=== PATIENT | female | born 1985 | race Two or more races ===

== ENCOUNTER 2023-04-19 19:22 | Emergency (ER) | payer MEDICAID, OTHER ==
[~2023-04-19] VITALS: Ht 162.6 cm; Wt 131.8 kg
[2023-04-19] MEDS ORDERED: DexAMETHasone SOD PHOS 10MG/1ML VIAL INJ IM ONE (21:30)
[2023-04-19] MEDS ORDERED: cefTRIAXone SOD 1,000 MG VL IM ONE (21:30)
[2023-04-19] MEDS ORDERED: PRED20TA2 PO (21:39)
[2023-04-19] MEDS ORDERED: AZITTAB PO (21:39)
[2023-04-19] MEDS ORDERED: ALBUAER3 IN (21:39)
[2023-04-19] MEDS ORDERED: LIDV15LQ MT (21:39)
[2023-04-19 22:45] VITALS: BP 139/85
== END 2023-04-19 22:45 | disposition home or self-care (01) ==
LOC: ER 19:25
DX: J03.90 Acute tonsillitis, unspecified (principal); J40 Bronchitis, not specified as acute or chronic
CPT/HCPCS: 96372; 99284; J0696; J1100

== ENCOUNTER 2023-06-27 23:13 | Emergency (ER) | payer MEDICAID ==
[~2023-06-27] VITALS: Ht 160 cm; Wt 144.2 kg
[~2023-06-27 23:13] MED LIST: ALBUAER3 IN; AZITTAB PO; LIDV15LQ MT; PRED20TA2 PO
[2023-06-27] MEDS ORDERED: KETOROLAC TROMETH 60MG/2ML VIAL IM ONE (23:45)
[2023-06-27] MEDS ORDERED: DexAMETHasone SOD PHOS 10MG/1ML VIAL INJ IM ONE (23:45)
[2023-06-27] MEDS ORDERED: IBUP1TAB5 PO (23:53)
[2023-06-27] MEDS ORDERED: HYDR-4902 PO (23:53)
[2023-06-27 23:59] VITALS: BP 145/84; PULSE 73; RESP 16; TEMP 98.1; O2SAT 98
== END 2023-06-28 00:15 | disposition home or self-care (01) ==
LOC: ER 23:13
DX: G56.01 Carpal tunnel syndrome, right upper limb (principal); M25.531 Pain in right wrist; Z79.899 Other long term (current) drug therapy
CPT/HCPCS: 29125; 96372; 99284; J1100; J1885

== ENCOUNTER 2023-07-05 20:05 | Emergency (ER) | payer MEDICAID ==
[~2023-07-05] VITALS: Ht 160 cm; Wt 131.0 kg
[~2023-07-05 20:05] MED LIST changes: +HYDR-4902 PO; +IBUP1TAB5 PO
[2023-07-06] MEDS ORDERED: HYDROcodone-ACET 5/325MG TAB PO ONE (01:45)
[2023-07-06 02:23] VITALS: BP 132/78; PULSE 78; RESP 18; TEMP 98
[2023-07-06 02:28] VITALS: O2SAT 99
== END 2023-07-06 06:32 | disposition home or self-care (01) ==
LOC: ER 20:08
DX: G56.01 Carpal tunnel syndrome, right upper limb (principal); Z79.1 Long term (current) use of non-steroidal anti-inflammatories (NSAID); Z79.2 Long term (current) use of antibiotics; Z79.899 Other long term (current) drug therapy
CPT/HCPCS: 29125; 73110; 93971

== ENCOUNTER 2025-03-29 23:44 | Emergency (ER) | payer MEDICAID ==
[~2025-03-29] VITALS: Ht 160 cm; Wt 142.1 kg
[~2025-03-29 23:44] MED LIST changes: +LIDO2SOL MT; -LIDV15LQ MT
[2025-03-30 00:45] VITALS: BP 149/93; PULSE 68; RESP 16; TEMP 97.1; O2SAT 98
[2025-03-30] MEDS: KETOROLAC TROMETH 60MG/2ML VIAL IM ONE (01:05)
--- NOTE | 2025-03-30 01:13 | DVH ---
EXAM: XY R KNEE 3V XRAY HISTORY: right knee pain COMPARISON: None TECHNIQUE: 3 views of the right knee were performed. FINDINGS: No acute fracture is identified about the right knee. No significant joint space narrowing. No evid ence of significant joint effusion. IMPRESSION: Unremarkable radiographs of the right knee.
--- NOTE | 2025-03-30 01:16 | ED.PDOC ---
Musculoskeletal HPI Comments 39-year-old female presents to ER with complaints of right knee pain x1 month. Patient reports he has been experiencing right knee pain x1 month that got worse x1 day prompting her to come to ER for further evaluation. 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 She rates her current pain a 10/10 to right knee without radiation. Reports that she has been taking ibuprofen and naproxen for her pain with some relief. Patient presents to ER ambulatory on arrival, with steady gait, in no distress. Denies fever, shortness of breath, calf pain, numbness/tingling or any further symptoms/complaints Chief Complaint: Lower Extremity Time Seen by MD: 00:01 Primary Care Provider: NIDIA Reviewed Notes: Nurses Notes, Medications, Allergies Allergies: Coded Allergies: NO KNOWN ALLERGIES (Unverified , 04/19/23) Home Meds Active Scripts Hydrocodone-Acetaminophen (Hydrocodone Bitartrate/AC 5-325 mg) 1 Tab Tab, 1 TAB PO Q6HR, #10 TAB as needed for severe pain Prov:SIVLESTRE RODRÍGUEZ FIELD CONSULTANT 06/27/23 Ibuprofen Micronized (Ibuprofen) 600 Mg Tab, 1 TAB PO Q8HR, #20 TAB as needed for mild to moderate pain Prov:SILVESTRE RODRÍGUEZ FIELD CONSULTANT 06/27/23 Lidocaine HCl (Mouth-Throat) (Lidocaine Viscous) 2 % Keshia, 5 ML MT Q4HR, #100 ML as needed for sorethroat Prov:SILVESTRE RODRÍGUEZ FIELD CONSULTANT 04/19/23 Prednisone (Prednisone) 20 Mg Tab, 1 TAB PO DAILY for 5 Days, #5 TAB start tomorrow with food Prov:SILVESTRE RODRÍGUEZ FIELD CONSULTANT 04/19/23 Albuterol Sulfate (VENTOLIN MDI) 90 Mcg Ih, 1 PUFF IN Q4HR, #1 INH As needed for cough congestion shortness of breath Prov:SILVESTRE RODRÍGUEZ FIELD CONSULTANT 04/19/23 Azithromycin (Zithromax Z-Chinedu) 250 Mg Tab, 1 TAB PO DAILY for 5 Days, #6 TAB 2 tabs today then 1 tab start tomorrow for 4 days Prov:SILVESTRE RODRÍGUEZ FIELD CONSULTANT 04/19/23 Information Source: Patient Mode of Arrival: Ambulatory Past Medical History PAST MEDICAL HISTORY: Denies Surgical History: Denies all surgeries COMMAND AND CONTROL History: No Pertinent COMMAND AND CONTROL History Family History Family History: Unknown Social History Smoker: Non-Smoker Alcohol: Denies ETOH Use Drugs: Denies Drug Use Lives In: Home Constitutional: denies: chills, diaphoresis, fatigue, fever, malaise, sweats, weakness, others EENTM: denies: blurred vision, double vision, ear bleeding, ear discharge, ear drainage, ear pain, ear ringing, eye pain, eye redness, hearing loss, mouth pain, mouth swelling, nasal discharge, nose bleeding, nose congestion, nose pain, photophobia, tearing, throat pain, throat swelling, voice changes, others Respiratory: denies: cough, hemoptysis, orthopnea, SOB at rest, shortness of breath, SOB with excertion, stridor, wheezing, others Cardiovascular: denies: chest pain, dizzy spells, diaphoresis, Dyspnea on exertion, edema, irregular heart beat, left arm pain, lightheadedness, palpitations, PND, syncope, others Gastrointestinal: denies: abdomen distended, abdominal pain, blood streaked bowels, constipated, diarrhea, dysphagia, difficulty swallowing, hematemesis, melena, nausea, poor appetite, poor fluid intake, rectal bleeding, rectal pain, vomiting, others Genitourinary: denies: abnormal vagina bleeding, burning, dyspareunia, dysuria, flank pain, frequency, hematuria, incontinence, pain, , vagina discharge, urgency, others Neurological: denies: dizziness, fainting, headache, left sided numbness, left sided weakness, numbness, paresthesia, pre-existing deficit, right sided numbness, right sided weakness, seizure, speech problems, tingling, tremors, weakness, others Musculoskeletal: reports: others (As stated in HPI) Integumetry: denies: bruises, change in color, change in hair/nails, dryness, laceration, lesions, lumps, rash, wounds, others Allergic/Immunocompromised: denies: Difficulty Healing, Frequent Infections, Hives, Itching, others Hematologic/Lymphatic: denies: anemia, blood clots, easy bleeding, easy bruising, swollen glands, others Endocrine: denies: excessive hunger, excessive sweating, excessive thirst, excessive urination, flushing, intolerance to cold, intolerance to heat, unexplained weight gain, unexplained weight loss, others Psychiatric: denies: anxiety, bipolar disorder, depression, hopeless, panic disorder, schizophrenia, sleepless, suicidal, others Physical Exam General Appearance: No Apparent Distress, Obese HEENT: PERRL/EOMI Neck: Full Range of Motion, Non-Tender, Normal Respiratory: Chest Non-Tender, Lungs Clear, No Accessory Muscle Use, No Re spiratory Distress, Normal Breath Sounds Cardiovascular: No Murmur, No Gallop, Regular Rate/Rhythm Breast Exam: Deferred Gastrointestinal: NOT DONE Genitalia: Deferred Pelvic: Deferred Rectal: Deferred Extremities: No calf tenderness, Normal capillary refill, Normal range of motion Musculoskeletal : Extremity Location: Knee (TTP/mild swelling noted to right anterior knee. No further skin changes/deformity noted. Positive anterior drawer test right knee. Negative Donna's test right knee. Pulses intact. Steady gait appreciated) Neurologic: Alert, No Motor Deficits, Normal Affect, Normal Mood, No Sensory Deficits Cerebellar Function: Normal Reflexes: Normal Skin: Dry, Normal Color, Warm Peripheral Pulses: 2+ femoral (R), 2+ femoral (L), 2+ dorsalis pedis (R), 2+ dorsalis pedis (L), 2+ Radial (R), 2+ Radial (L), 2+ Brachial (R), 2+ Brachial (L) Lymphatic: No Adenopathy Was a procedure done? Was a procedure done?: No Sedation Sedation?: No Differential Diagnosis EXT Differential Diagnosis: Deep Vein Thrombosis, Fracture, Dislocation, Neurovascular injury X-Ray, Labs, Meds, VS Vital Signs Date Time Temp Pulse Resp B/P (MAP) Pulse Ox O2 Delivery O2 Flow Rate FiO2 03/30/25 00:45 97.1 68 16 149/93 (111) 98 97.1 03/30/25 00:45 68 16 98 Room Air 03/30/25 00:20 97.1 68 16 149/93 (111) 98 97.1 Current Medications Medications (Trade) Dose Ordered Sig/Ruben Route Start Time Stop Time Status Last Admin Ketorolac Tromethamine (Toradol Injection) 60 mg ONCE ONCE IM 03/30/25 01:00 03/30/25 01:01 DC 03/30/25 01:05 PATIENT: DENVRE MARQUEZCCT: [id number]: [id number] : 1985 LOC: ER ROOM / BED: / AGE / SEX: 39 / F ADM STATUS: REG ER SERVICE [id number] ORDERING PHYSICIAN: RALEIGH WEINER PROCEDURE(s): RKN3 - R KNEE 3V XRAY REASON: right knee pain ORDER NUMBER(s): [id number], ACCESSION NUMBER(s): [id number] EXAM: XY R KNEE 3V XRAY HISTORY: right knee pain COMPARISON: None TECHNIQUE: 3 views of the right knee were performed. FINDINGS: No acute fracture is identified about the right knee. No significant joint space narrowing. No evidence of significant joint effusion. IMPRESSION: Unremarkable radiographs of the right knee. ATED BY: MANOLO SANTANA DO DICTATED DATE/TIME: 03/30/25109 SIGNED BY: MANOLO SANTANA DO SIGNED DATE/TIME: 03/30/25109 CC: Toradol 60 mg IM ordered Right knee x-ray reviewed Right knee immobilizer applied Advised on rest/no strenuous activity, elevation and alternate ice on/off as needed for pain/swelling Advised to follow up with PCP and orthopedics in 1-2 days Patient verbalized understanding and agreeable with current plan of care Advised to return to ER immediately if symptoms worsen Images Reviewed?: Images reviewed and evaluated by me Time of 1ST Reevaluation: 00:54 Reevaluation 1ST: N/A Patient Education/Counseling: Diagnosis, Treatment, Prognosis, Need For Follow Up Family Education/Counseling: No Family Present Departure 1 Departure Time of Disposition: 01:12 Impression: Primary Impression: Right knee sprain Qualified Codes: S83.91XA - Sprain of unspecified site of right knee, initial encounter Disposition: HOME / SELF CARE / HOMELESS Condition: Stable e-Prescriptions Methylprednisolone (Medrol Dosepak) 4 Mg Chinedu 4 MG PO UD, #21 TAB 0 Refills UAD Prov: RALEIGH WEINER 03/30/25 Ibuprofen (Ibuprofen) 800 Mg Tab 1 TAB PO TID PRN, #30 TAB 0 Refills Prov: RALEIGH WEINER 03/30/25 Discharged With: Friend Critical Care Note Critical Care Time?: No Stability Stability form required: No Heart Score Heart Score: Heart Score Response (Comments) Value History N/A 0 EKG N/A 0 Age N/A 0 Risk Factors N/A 0 Troponin N/A 0 Total 0 RALEIGH WEINER Mar 30, 2025 01:15
[2025-03-30] MEDS ORDERED: IBUP-1456 PO (01:18)
[2025-03-30] MEDS ORDERED: METH4PAK PO (01:18)
== END 2025-03-30 01:55 | disposition home or self-care (01) ==
LOC: ER 23:44
DX: S83.91XA Sprain of unspecified site of right knee, initial encounter (principal); Z79.52 Long term (current) use of systemic steroids; Z79.899 Other long term (current) drug therapy; X50.1XXA Overexertion from prolonged static or awkward postures, initial encounter; Y93.89 Activity, other specified; Y92.89 Other specified places as the place of occurrence of the external cause; Y99.8 Other external cause status
CPT/HCPCS: 29505; 73562; 96372; 99283; J1885

== ENCOUNTER 2025-08-13 14:19 | Emergency (ER) | payer MEDICAID ==
[~2025-08-13] VITALS: Ht 160 cm; Wt 140.4 kg
[~2025-08-13 14:19] MED LIST changes: +IBUP-1456 PO; +METH4PAK PO
--- NOTE | 2025-08-13 16:31 | ED.PDOC ---
Musculoskeletal HPI Comments HPI: Poor Historian. 39-year-old female presents to emergency department for pain control. Patient said that she injured her right knee few months ago and had an MRI that shows meniscus tear. She has been seen by her PCP and by pain management. Pain management prescribed her tramadol and she still has some tramadol left to use. She said the pain is not well controlled. She points to her right anterior knee in a focal area. Patient has not been able to take time off work and still stands and walks on her joint. Patient has an appointment with the orthopedic doctor on August 21. Patient has been seen by pain management two weeks ago. Denies any new fall or trauma. Patient states that her pain is worse at the end of the range of motion of full extension or full flexion but when the knees at degree angle and is not bearing weight feels better. Patient is neurovascularly intact in the affected extremity. Past Medical History: Denies Past Surgical History: REVIEW OF SYSTEMS: CONSTITUTIONAL: Denies acute: fever, diaphoresis, chills, generalized weakness. HEAD: Denies acute: headache, photophobia Eyes: Denies acute: Double vision, vision loss, eye pain, eye discharge. EARS: Denies acute: tinnitus, hearing loss, ear discharge, ear pain, THROAT: Denies acute: sore throat, swelling, difficulty swallowing , pain with swallowing, change in voice. NECK: Denies acute: neck pain, neck swelling, stiff neck. HEART: Denies acute : chest pain, palpitations, LUNGS: Denies acute: SOB, wheezing, cough, hemoptysis ABDOMEN: Denies acute: abdominal pain, Nausea, Vomiting, diarrhea, melena , hematemesis, hematochezia SKIN: Denies acute: rash, redness, lesions, itchiness. EXTREMITIES: Denies acute: calf pain, numbness, tingling, weakness, denies pain in extremity. Denies acute: Low back pain. Neuro: Denies acute: focal neurological deficit, motor or sensory focal neurological deficit, tremors, seizure like activity, confusion, dizziness, change in mental status, loss of bowel or bladder function, cauda equina like symptoms. : Denies acute: dysuria, hematuria, flank pain, increase in urinary frequency. PSYCH: Denies acute: hallucination, suicidal ideation, homicidal ideation. FEMALE: Denies acute: abnormal vaginal bleeding, foul odor, unusual discharge. PHYSICAL EXAM: General: ---mild----acute distress, awake and alert. Head: normocephalic, atraumatic. Neck: supple, trachea is midline, no swelling. Throat: Normal phonation. Eyes:, no erythema, no purulent discharge, no proptosis, no icterus. Heart: regular rate, regular rhythm, no significant murmur appreciated. Lungs: no apparent respiratory distress, Able to speak in full sentences. No wheezing, no rhonchi, no crackles. No stridors Clear to auscultation bilaterally. Abdomen: non tender to palpation, non distended, soft, no guarding, no rebound, + bowel sounds. Obese Neuro: Awake, Alert, oriented to name, self, situation, follows commands GCS=15. Speech is normal. Skin: no petechia, no purpura, no cyanosis, non-pale, not jaundice. Lower extremities: --no - Pitting edema no deformity, no focal swelling, no calf TTP. Makes eye contact. moves all four extremities. Face: no apparent facial droop. Ambulating in the ED independently. Pedal pulses are palpable. ED COURSE: DISCLAIMER: This medical document was created using an electronic medical record system with voice recognition software and computerized dictation system. Although this document has been carefully reviewed, there might still be some phonetic and typographical errors. Occasional wrong-word or "sound-alike" substitutions may have occurred due to the inherent limitations of voice recognition software. These areas are purely typographical due to imperfections of the software programs and do not reflect any compromise in the patient's medical care. Please read the chart carefully and recognize, using context, where these substitutions have occurred. Chief Complaint: Lower Extremity Time Seen by MD: 15:17 Primary Care Provider: NIDIA Reviewed Notes: Allergies Allergies: Coded Allergies: NO KNOWN ALLERGIES (Unverified , 04/19/23) Home Meds Active Scripts Methylprednisolone (Medrol Dosepak) 4 Mg Chinedu, 4 MG PO UD, #21 TAB 0 Refills UAD Prov:RALEIGH WEINER 03/30/25 Ibuprofen (Ibuprofen) 800 Mg Tab, 1 TAB PO TID PRN, #30 TAB 0 Refills Prov:RALEIGH WEINER 03/30/25 Hydrocodone-Acetaminophen (Hydrocodone Bitartrate/AC 5-325 mg) 1 Tab Tab, 1 TAB PO Q6HR, #10 TAB as needed for severe pain Prov:SILVESTRE RODRÍGUEZ Megan SENSORY SCIENTIST 06/27/23 Ibuprofen Micronized (Ibuprofen) 600 Mg Tab, 1 TAB PO Q8HR, #20 TAB as needed for mild to moderate pain Prov:MARCOSPRITIKaleb Guzman SENSORY SCIENTIST 06/27/23 Lidocaine HCl (Mouth-Throat) (Lidocaine Viscous) 2 % Keshia, 5 ML MT Q4HR, #100 ML as needed for sorethroat Prov:MARCOSPRITIKaleb Guzman SENSORY SCIENTIST 04/19/23 Prednisone (Prednisone) 20 Mg Tab, 1 TAB PO DAILY for 5 Days, #5 TAB start tomorrow with food Prov:MARCOSPRITIKaleb Guzman SENSORY SCIENTIST 04/19/23 Albuterol Sulfate (VENTOLIN MDI) 90 Mcg Ih, 1 PUFF IN Q4HR, #1 INH As needed for cough congestion shortness of breath Prov:MARCOSPRITIKaleb Guzman SENSORY SCIENTIST 04/19/23 Azithromycin (Zithromax Z-Chinedu) 250 Mg Tab, 1 TAB PO DAILY for 5 Days, #6 TAB 2 tabs today then 1 tab start tomorrow for 4 days Prov:SILVESTRE RODRÍGUEZ Megan SENSORY SCIENTIST 04/19/23 Information Source: Patient Mode of Arrival: Ambulatory Past Medical History PAST MEDICAL HISTORY: Denies Surgical History: Denies all surgeries MANAGER PAID History: No Pertinent MANAGER PAID History Family History Family History: Unknown Social History Smoker: Non-Smoker Alcohol: Denies ETOH Use Drugs: Denies Drug Use Lives In: Home X-Ray, Labs, Meds, VS Vital Signs Date Time Temp Pulse Resp B/P (MAP) Pulse Ox O2 Delivery O2 Flow Rate FiO2 08/13/25 14:21 97.8 73 15 135/82 96 97.8 Departure 1 Departure Time of Disposition: 16:30 Impression: Primary Impression: Right knee pain Additional Impression: Encounter for pain management Disposition: HOME / SELF CARE / HOMELESS Condition: Stable Additional Instructions: Additional instructions: Please read all instructions provided in this packet carefully. You MUST follow-up with your primary care/family doctor in 1 to 2 days. If you are unable to see your primary care/family doctor, please return to our emergency room for re-assessment and re-evaluation in 1 to 2 days. Return to the emergency room here in our facility or to the nearest ER [facility] if your symptoms change or worsen. CONSULTATIONS: you MUST Follow-up for consultation as soon as possible with: --orthopedic doctor as instructed as arranged. You MUST call the consultants office yourself to make an appointment. You may need to arrange that through your insurance and/or your primary/family doctor. If you are unable to see the pension consultant in 1 to 2 days, you must return to our emergency room (or any other ER of your choice) for re-assessment and re- evaluation. Adequate fluid hydration. Nonweightbearing. Rest. Leg elevation. Sedation precautions with medications. Although you have been discharged from the Emergency Department, this does not mean that you have a "clean bill of health". No definitive diagnosis for your symptoms has been made today. It is possible that you are in the process of developing a serious illness. This is why you must return to the ED without fail if any new or worsening symptoms develop. Discharged With: Self [place] SARAVIA DO Aug 13, 2025 16:31
[2025-08-13 17:30] VITALS: BP 130/75; PULSE 67; RESP 16; TEMP 98; O2SAT 100
[2025-08-13] MEDS: KETOROLAC TROMETH 60MG/2ML VIAL IM ONE (17:33)
[2025-08-13] MEDS: HYDROcodone-ACET 5/325MG TAB PO ONE (17:33)
== END 2025-08-13 18:02 | disposition home or self-care (01) ==
LOC: ER 14:19
DX: M25.561 Pain in right knee (principal); Z79.52 Long term (current) use of systemic steroids
CPT/HCPCS: 96372; 99284; J1100; J1885

== ENCOUNTER 2025-10-15 12:01 | Emergency (ER) | payer MEDICAID ==
[~2025-10-15] VITALS: Ht 160 cm; Wt 136.6 kg
[2025-10-15 12:11] VITALS: BP 127/91; PULSE 81; RESP 16; TEMP 98; O2SAT 99
--- NOTE | 2025-10-15 13:40 | ED.PDOC ---
SOB-HPI HPI Comments This is a 39 year old female presenting to the ED with chief complaint of flu- like illness. Patient reports that she has been experiencing a cough with associated chest congestion and SOB since . Patient relays that her SOB is only noted with exertion. Patient denies any fever, chills, headache, hemoptysis, or dizziness. Chief Complaint: Flu like Time Seen by MD: 13:37 Primary Care Provider: NIDIA Reviewed notes: Nurses Notes, Medications, Allergies Information Source: Patient Mode of Arrival: Ambulatory Severity: Moderate Timing: Days Duration: Since onset Context: At Rest PE Risk Factors: None History of: None Prehospital treatment: None Modifying Factors: Nothing Associated Signs and Symptoms: Cough, Chest Pain Quality: Aching If cough with SOB: Non-Productive Past Medical History PAST MEDICAL HISTORY: Denies Surgical History: Denies all surgeries SWIFT TENDER History: No Pertinent SWIFT TENDER History Family History Family History: Reviewed,noncontributory to illness Social History Smoker: Non-Smoker Alcohol: Denies ETOH Use Drugs: Denies Drug Use Lives In: Home Constitutional: denies: chills, diaphoresis, fatigue, fever, malaise, sweats, weakness, others EENTM: denies: blurred vision, double vision, ear bleeding, ear discharge, ear drainage, ear pain, ear ringing, eye pain, eye redness, hearing loss, mouth pain, mouth swelling, nasal discharge, nose bleeding, nose congestion, nose pain, photophobia, tearing, throat pain, throat swelling, voice changes, others Respiratory: reports: cough, shortness of breath; denies: hemoptysis, orthopnea, SOB at rest, SOB with excertion, stridor, wheezing, others Cardiovascular: reports: chest pain; denies: dizzy spells, diaphoresis, Dyspnea on exertion, edema, irregular heart beat, left arm pain, lightheadedness, palpitations, PND, syncope, others Gastrointestinal: denies: abdomen distended, abdominal pain, blood streaked bowels, constipated, diarrhea, dysphagia, difficulty swallowing, hematemesis, melena, nausea, poor appetite, poor fluid intake, rectal bleeding, rectal pain, vomiting, others Genitourinary: denies: abnormal vagina bleeding, burning, dyspareunia, dysuria, flank pain, frequency, hematuria, incontinence, pain, , vagina discharge, urgency, others Neurological: denies: dizziness, fainting, headache, left sided numbness, left sided weakness, numbness, paresthesia, pre-existing deficit, right sided numbness, right sided weakness, seizure, speech problems, tingling, tremors, weakness, others Musculoskeletal: denies: back pain, gout, joint pain, joint swelling, muscle pain, muscle stiffness, neck pain, others Integumetry: denies: bruises, change in color, change in hair/nails, dryness, laceration, lesions, lumps, rash, wounds, others Allergic/Immunocompromised: denies: Difficulty Healing, Frequent Infections, Hives, Itching, others Hematologic/Lymphatic: denies: anemia, blood clots, easy bleeding, easy bruising, swollen glands, others Endocrine: denies: excessive hunger, excessive sweating, excessive thirst, excessive urination, flushing, intolerance to cold, intolerance to heat, unexplained weight gain, unexplained weight loss, others Psychiatric: denies: anxiety, bipolar disorder, depression, hopeless, panic disorder, schizophrenia, sleepless, suicidal, others All Other Systems: Reviewed and Negative Physical Exam General Appearance: Moderate Distress, Normal HEENT: Normal ENT Inspection, Pharynx Normal, TMs Normal Neck: Full Range of Motion, Non-Tender, Normal, Normal Inspection Respiratory: Chest Non-Tender, Lungs Clear, No Accessory Muscle Use, No Respiratory Distress, Normal Breath Sounds Cardiovascular: No Edema, No JVD, No Murmur, No Gallop, Normal Peripheral Pulses, Regular Rate/Rhythm Breast Exam: Deferred Gastrointestinal: No Organomegaly, Non Tender, No Pulsatile Mass, Normal Bowel Sounds, Soft Genitalia: Deferred Pelvic: Deferred Rectal: Deferred Extremities: No calf tenderness, Normal capillary refill, Normal inspection, Normal range of motion, Non-tender, No pedal edema Musculoskeletal : Apperance: Normal Neurologic: Alert, contracting manager II-XII nml as Tested, No Motor Deficits, Normal Affect, Normal Mood, No Sensory Deficits Cerebellar Function: Normal Reflexes: Normal Skin: Dry, Normal Color, Warm Peripheral Pulses: 3+ Radial (R), 3+ Radial (L) Lymphatic: No Adenopathy Was a procedure done? Was a procedure done?: No Differential Dx Differential Diagnosis: Anxiety, Asthma, Bronchitis, CHF, COPD, Pneumonia, Pharyngitis, URI X-Ray, Labs, Meds, VS Vital Signs Date Time Temp Pulse Resp B/P (MAP) Pulse Ox O2 Delivery O2 Flow Rate FiO2 10/15/25 12:11 98.0 81 16 127/[address] [address] Ph: [phone] DIAGNOSTIC IMAGING Diagnostic Imaging Report : [id number] Signed PATIENT: ZIYAD MARQUEZ MACCT: [id number] UNIT: [id number] : 1985 LOC: ER ROOM / BED: / AGE / SEX: 39 / F ADM STATUS: REG ER SERVICE 1319 ORDERING PHYSICIAN: ONEAL IBANEZ MD PROCEDURE(s): CXRP - CHEST PORTABLE REASON: sob ORDER NUMBER(s): [id number], ACCESSION NUMBER(s): [id number] EXAM: XY CHEST PORTABLE HISTORY: sob TECHNIQUE: 1 view of the chest COMPARISON: None FINDINGS/IMPRESSION: LUNGS: No pleural effusion, consolidation, or pneumothorax. Peribronchial thickening, which is nonspecific however may represent infectious versus inflammatory bronchitis. MEDIASTINUM: Unremarkable. BONES: No acute osseous abnormality. OTHER: None. ATED BY: JAX GOODMAN MD DICTATED DATE/TIME: 10/15/25 1350 SIGNED BY: JAX GOODMAN MD SIGNED DATE/TIME: 10/15/25 1350 CC: Patient alert. Came in because of cough. Chest x-ray reviewed does show pneumonitis. Vitals stable. Answering questions. No leg swelling. No shortness a breath. Heart rate within normal limits. Saturation pristine on room air. She is comfortable. No acute process. Was given prescription of prednisone amoxicillin antibiotic. Was told to follow up with her primary care physician. Was told to come back if there is any problem. Images Reviewed?: Images reviewed and evaluated by me Time of 1ST Reevaluation: 14:37 Reevaluation 1ST: Improved Patient Education/Counseling: Diagnosis, Treatment Family Education/Counseling: No Family Present SEPSIS Sepsis Screen Date sepsis recognized/suspect: Oct 15, 2025 Time Sepsis recognized/suspect: 1211 Recent Procedure: No On Antibiotic Therapy: No Respiratory Rate >20: No Heart Rate >90: No Temp<36 C (96.8 F) or >38.3 C: No SBP <90 or MAP <65 mmHG: No New Acute Mental Status Change: No Is the patient on CPAP, BIPAP,: No Physician Orders Chest Portable (10/15/25 13:19) Vital Signs Date Time Temp Pulse Resp B/P (MAP) Pulse Ox O2 Delivery O2 Flow Rate FiO2 10/15/25 12:11 98.0 81 16 127/91 99 98.0 Departure 1 Departure Time of Disposition: 14:21 Impression: Primary Impression: Pneumonitis Disposition: HOME / SELF CARE / HOMELESS Condition: Good e-Prescriptions Amoxicillin Trihydrate (Amoxicillin) 500 Mg Cap 1 CAP PO TID for 10 Days, #30 CAP Prov: ONEAL IBANEZ MD 10/15/25 Prednisone (Prednisone) 20 Mg Tab 20 MG PO BS for 5 Days, #5 MG Prov: ONEAL IBANEZ MD 10/15/25 Discharged With: Self Critical Care Note Critical Care Time?: No Stability Stability form required: No Heart Score Heart Score: Heart Score Response (Comments) Value History N/A 0 EKG N/A 0 Age N/A 0 Risk Factors N/A 0 Troponin N/A 0 Total 0 I personally scribed for ONEAL IBANEZ MD ([email or web address]) on 10/15/25 at 13:40. Electronically submitted by Mitch Garrison ([email or web address]). I personally scribed for ONEAL IBANEZ MD ([email or web address]) on 10/15/25 at 13:56. Electronically submitted by Mitch Garrison ([email or web address]). ONEAL IBANEZ MD Oct 15, 2025 13:40
--- NOTE | 2025-10-15 13:53 | DVH ---
EXAM: XY CHEST PORTABLE HISTORY: sob TECHNIQUE: 1 view of the chest COMPARISON: None FINDINGS/IMPRESSION: LUNGS: No pleural effusion, consolidation, or pneumothorax. Peribronchial thickening, which is nonspecific however may represent infectious versus inflammatory bronchitis. MEDIASTINUM: Unremarkable. BONES: No acute osseous abnormality. OTHER: None.
[2025-10-15] MEDS ORDERED: AMOX500C2 PO (14:22)
[2025-10-15] MEDS ORDERED: PRED20TA2 PO (14:22)
== END 2025-10-15 15:09 | disposition home or self-care (01) ==
LOC: ER 12:01
DX: J98.4 Other disorders of lung (principal)
CPT/HCPCS: 71045